=== PATIENT | female | born 1965 | race Hispanic/Latino ===

== ENCOUNTER 2016-08-22 13:07 | Outpatient (CLI) | payer BC ==
--- NOTE | 2016-08-23 08:19 | Mammography Report ---
BILATERAL DIGITAL SCREENING MAMMOGRAM WITH CAD: 08/22/16 13:07:00 CLINICAL: Routine screening.Breast cancer survivor status post right partial mastectomy. COMPARISON:08/22/15 FINDINGS: The breasts are almost entirely fatty. The right breast is smaller than the left and stable. Benign fat necrosis with dense calcification at the scar. No mass, suspicious architectural distortion or suspicious calcifications. IMPRESSION: No mammographic evidence of malignancy. BI-RADS CATEGORY: 2 -- Benign RECOMMENDATION: Routine mammographic screening in one year. COMMENT: Patient follow-up letters are generated via our [employer] application.
== END 2016-08-22 13:08 | disposition home or self-care (01) ==
LOC: SPVWC 13:07
PROVIDERS: ATTEND Radiology Radiation Oncology
DX: Z12.31 Encounter for screening mammogram for malignant neoplasm of breast (principal)
CPT/HCPCS: 77067; G0202

== ENCOUNTER 2017-08-29 11:47 | Outpatient (CLI) | payer BC ==
--- NOTE | 2017-09-01 11:20 | Mammography Report ---
BILATERAL DIGITAL SCREENING MAMMOGRAM WITH CAD: 08/29/17 11:47:00 CLINICAL: Routine screening.Breast cancer survivor status post right partial mastectomy . COMPARISON:08/22/16 FINDINGS: The breasts are mostly fatty. The right breast is smaller than the left with stable upper-outer postsurgical scar. Stable fat necrosis with a dense calcification at the scar. No mass, suspicious architectural distortion or suspicious calcifications. IMPRESSION: No mammographic evidence of malignancy. BI-RADS CATEGORY: 2 -- Benign RECOMMENDATION: Routine mammographic screening in one year. COMMENT: Patient follow-up letters are generated via our [employer] application.
== END 2017-08-29 11:48 | disposition home or self-care (01) ==
LOC: SPVWC 11:47
PROVIDERS: ATTEND Radiology Radiation Oncology
DX: Z12.31 Encounter for screening mammogram for malignant neoplasm of breast (principal); Z90.11 Acquired absence of right breast and nipple
CPT/HCPCS: 77067

== ENCOUNTER 2018-08-31 08:02 | Outpatient (CLI) | payer BC ==
--- NOTE | 2018-08-31 11:19 | Mammography Report ---
BILATERAL DIGITAL SCREENING MAMMOGRAM WITH CAD: 08/31/18 08:02:00 CLINICAL: Routine screening.Breast cancer survivor status post right mastectomy . COMPARISON:08/29/17 FINDINGS: The breasts are mostly fatty in the right breast is smaller than the left. Stable right upper outer postsurgical scar with a heavily calcified mass at the scar. No other mass, architectural distortion or suspicious calcifications. IMPRESSION: No mammographic evidence of malignancy. BI-RADS CATEGORY: 2 -- Benign RECOMMENDATION: Routine mammographic screening in one year. COMMENT: Patient follow-up letters are generated via our [email or web address] application.
== END 2018-08-31 08:03 | disposition home or self-care (01) ==
LOC: SPVWC 08:02
PROVIDERS: ATTEND Radiology Radiation Oncology
DX: Z12.31 Encounter for screening mammogram for malignant neoplasm of breast (principal)
CPT/HCPCS: 77067

== ENCOUNTER 2019-09-14 09:31 | Outpatient (CLI) | payer BC ==
--- NOTE | 2019-09-14 10:29 | Mammography Report ---
DIGITAL SCREENING MAMMOGRAM WITH CAD, 09/14/2019 INDICATION: Routine screening mammography. TECHNIQUE: Digital bilateral 2D mammography was obtained in the craniocaudal and mediolateral obliq ue projections. This examination was interpreted with the benefit of Computer-Aided Detection analysi s. COMPARISON: 08/31/2018, 08/29/2017, 08/22/2016. FINDINGS: Breast Density: The breasts are almost entirely fatty. There is no evidence of dominant mass, suspicious calcifications or architectural distortion in eithe r breast. Postoperative scarring is identified in the upper outer quadrant of the right breast, uncha nged. IMPRESSION: Follow up recommendation: Routine yearly BI-RADS Category 2: Benign. A "normal" or negative report should not discourage follow up or biopsy of a clinically significant f inding. A written summary of these findings will be mailed to the patient. The patient will be entered into a mammography reporting system which will generate a reminder letter for the patient's next appointmen t at the appropriate interval. [employer] recommends yearly mammograms starting at age 40 and continuing as l vitaly as a woman is in good health. Breast MRI is recommended for women with an approximate 20-25% or greater lifetime risk of breast cancer, including women with a strong family history of breast or ova mitchell cancer or who have been treated for Hodgkin's disease. Signer Name: Shady Florez MD Signed: 09/14/2019 10:24 AM Workstation Name: [id number]
== END 2019-09-14 09:32 | disposition home or self-care (01) ==
LOC: SPVWC 09:31
PROVIDERS: ATTEND Radiology Radiation Oncology
DX: Z12.31 Encounter for screening mammogram for malignant neoplasm of breast (principal)
CPT/HCPCS: 77067